=== PATIENT | female | born 1995 | race African-American/Black ===

== ENCOUNTER → 2023-06-17 | Emergency (ER) | payer BC, OTHER ==
[~2023-06-17] MED LIST: CIPROFLOXACIN HCL 500 MG TAB ONE; KETOROLAC 30 MG/ML INJ ONE; MAGNESIUM SULFATE 1 gm IVPB 1 GM/100 ML BAG IV ONE; MORPHINE 4 MG/ML SYR ONE; NA CHLORIDE 0.9% 1,000 ML ONE; ONDANSETRON 4 MG/2 ML VIAL ONE; TAMSULOSIN 0.4 MG SR CAP ONE
[2023-06-17 10:56] LABS: Absolute Lymphocytes (CBC) 2.7 K/uL (0.7-4.9); Lymphocytes % 16.8 % (15.3-44.8); MCV 75.4 fL (80-100); MPV 9.4 fL (7.6-11.3); Platelets 202 thou/uL (152-406); RBC Red Blood Cell Count 5.17 M/uL (3.86-4.86)
[2023-06-17 11:13] LABS: Albumin 2.7 g/dL (3.4-5.0); Bilirubin Total 0.3 mg/dL (0.2-1.0); Potassium 4.3 mEq/L (3.5-5.1); Protein, Total 7.2 g/dL (6.4-8.2)
[2023-06-17 11:33] LABS: Specific Gravity 1.024 (1.005-1.030); Urine Bilirubin NEGATIVE (Negative); Urine Blood Negative (Negative); Urine Clarity Clear (Clear); Urine Color Light-Yellow (Yellow); Urine Glucose NEGATIVE (Negative); Urine Protein NEGATIVE (Negative); Urine Urobilinogen Normal (Normal); Urine pH 6.5 (5.0-7.0)
--- NOTE | 2023-06-17 11:36 | RAD REPORT ---
EXAM DESCRIPTION: CT - Stone Protocol - 06/17/2023 11:10 am CLINICAL HISTORY: Abdominal pain. Left flank pain COMPARISON: None. TECHNIQUE: Computed axial tomography of the abdomen pelvis was obtained without oral or IV contrast. Lack of IV and oral contrast limits evaluation of solid organs, appendix, bowel, and vessels. Patton l reformatted images were obtained and reviewed. All CT scans are performed using dose optimization technique as appropriate and may include automated exposure control or mA/KV adjustment according to patient size. FINDINGS: 1 millimeter calculus right kidney. No hydronephrosis. Mild hydronephrosis left kidney. Mild stranding adjacent to the left kidney and left ureter. Portions left ureter dilated. 3 millimeter calculus either left UVJ or entirely within the bladder lumen. The liver, spleen, pancreas and adrenals appear grossly normal There is no evidence of diverticulitis. The appendix appears normal No adnexal mass. Small umbilical hernia IMPRESSION: 3 millimeter calculus either left UVJ or entirely within the bladder lumen. Mild left hy dronephrosis
[2023-06-17 11:42] LABS: Blood Morphology Comment NOT SEEN (NOT SEEN); Platelet Estimate ADEQ
--- NOTE | 2023-06-17 12:08 | EDPHYS ---
Physician Documentation [facility] Name: Sofía Hung Age: 27 yrs Sex: Female : 1995 Arrival Date: 06/17/2023 Time: 10:14 Bed 14 Private MD: ED Physician Demar Chand HPI: 06/17 10:53 This 27 yrs old Black Female presents to ER via Wheelchair with complaints of Possible rn Kidney Stone. 10:53 The patient complains of pain in the left mid back. The pain radiates to the abdomen. rn Onset: The symptoms/episode began/occurred yesterday. Modifying factors: The symptoms are alleviated by nothing. the symptoms are aggravated by nothing. Severity of pain: At its worst the pain was moderate in the emergency department the pain is unchanged. The patient has not experienced similar symptoms in the past. Patient seen yesterday at [facility] for for kidney stone, has never had kidney stone in past. Does not recall what size stone it was. Sheridan better and discharged home with medication. Pain return this a.m. so came in for evaluation.. Historical: - Allergies: 10:27 No Known Allergies; hb - Home Meds: 10:27 topiramate 50 mg oral tablet 1 tab 2 times per day [Active]; buspirone 15 mg Oral hb tablet 1 tab 3 times per day [Active]; escitalopram oxalate 20 mg oral tablet 1 tab daily [Active]; phentermine 37.5 mg oral capsule 1 cap daily [Active]; - PMHx: 10:27 Depressive disorder; Anxiety; hb - Immunization history:: Adult Immunizations up to date. - Social history:: Smoking status: Patient denies any tobacco usage or history of. - Family history:: not pertinent. - Hospitalizations: : No recent hospitalization is reported. ROS: 10:53 Constitutional: Negative for fever, chills, and weight loss, Cardiovascular: Negative rn for chest pain, palpitations, and edema, Respiratory: Negative for shortness of breath, cough, wheezing, and pleuritic chest pain, Abdomen/GI: Positive for left flank pain Back: Negative for injury MS/Extremity: Negative for injury and deformity, Skin: Negative for injury, rash, and discoloration, Neuro: Negative for headache, weakness, numbness, tingling, and seizure, Exam: 10:53 Constitutional: This is a well developed, well nourished patient who is awake, alert, rn appears uncomfortable Cardiovascular: Regular rate and rhythm. No pulse deficits. Respiratory: No increased work of breathing, no retractions or nasal flaring. Abdomen/GI: Soft, nontender MS/ Extremity: Pulses equal, no cyanosis. Neuro: Awake and alert, GCS 15 Vital Signs: 10:25 BP 117 / 81; Pulse 82; Resp 16; Temp 97.6; Pulse Ox 100% ; Weight 79.38 kg; Height 5 hb ft. 6 in. ; 10:45 BP 124 / 85; Pulse 89; Resp 15; Pulse Ox 100% ; ko1 12:39 BP 116 / 68; Pulse 82; Resp 16; Pulse Ox 100% ; ko1 10:25 Body Mass Index 28.25 (79.38 kg, 167.64 cm) hb MDM: 10:20 Patient medically screened. rn 12:05 Differential diagnosis: nephrolithiasis, pyelonephritis, UTI. Data reviewed: vital rn signs, nurses notes, lab test result(s), radiologic studies, CT scan, and as a result, I will discharge patient. Counseling: I had a detailed discussion with the patient and/or guardian regarding the historical points, exam findings, and any diagnostic results supporting the discharge/admit diagnosis, lab results, radiology results, the need for outpatient follow up, to return to the emergency department if symptoms worsen or persist or if there are any questions or concerns that arise at home. Response to treatment: the patient's symptoms have markedly improved after treatment, and as a result, I will discharge patient. Special discussion: I discussed with the patient/guardian in detail that at this point there is no indication for admission to the hospital. It is understood, however, that if the symptoms persist or worsen the patient needs to return immediately for re-evaluation. ED course: Patient with marked improvement after medication. Minimal pain. Patient is happy and thankful. 3 mm kidney stone appears to be either in the bladder completely or just about to drop into the bladder. Signs of ureteral stranding, will DC home with antibiotics and given return precautions.. 06/17 10:28 Order name: CBC with Diff; Complete Time: 11:57 rn 06/17 10:28 Order name: CMP; Complete Time: 11:15 rn 06/17 10:28 Order name: Urinalysis w/ reflexes; Complete Time: 11:42 rn 06/17 11:05 Order name: Manual Differential; Complete Time: 11:57 EDMS 06/17 10:28 Order name: CT Stone Protocol; Complete Time: 11:42 rn 06/17 10:28 Order name: IV Saline Lock; Complete Time: 10:49 rn 06/17 10:28 Order name: Labs collected and sent; Complete Time: 10:49 rn Administered Medications: 10:55 Drug: Ondansetron IVP 4 mg IVP once; over 2 minutes Route: IVP; Site: left wrist; ko1 12:42 Follow up: Response: No adverse reaction; Nausea is decreased ko1 10:58 Drug: TORadol - Ketorolac IVP 15 mg IVP once Route: IVP; Site: left wrist; ko1 12:42 Follow up: Response: No adverse reaction ko1 11:01 Drug: morphine IVP or IV 4 mg IVP once over 4 mins Route: IVP; Infused Over: 4 mins; ko1 Site: left wrist; 12:42 Follow up: Response: No adverse reaction; Pain is decreased ko1 11:55 Drug: Magnesium Sulfate IVPB 1 grams IVPB once over 1 hrs Route: IVPB; Infused Over: 1 ko1 hrs; Site: left wrist; 12:42 Follow up: IV Status: Completed infusion; IV Intake: 100ml ko1 12:02 Drug: Flomax PO 0.4 mg PO once Route: PO; ko1 12:42 Follow up: Response: No adverse reaction ko1 12:39 Drug: Ciprofloxacin PO 500 mg PO once Route: PO; ko1 12:49 Follow up: Response: No adverse reaction ko1 Disposition Summary: 06/17/23 12:06 Discharge Ordered Notes: Location: Home rn Problem: new rn Symptoms: have improved rn Condition: Stable rn Diagnosis - Urinary calculus, unspecified rn - UTI/ Urinary tract infection, site not specified rn Followup: rn - With: Private Physician - When: As needed - Reason: Recheck today's complaints, Re-evaluation by your physician Discharge Instructions: - Discharge Summary Sheet rn - Kidney Stones rn - Urinary Tract Infection, Adult rn Forms: - Medication Reconciliation Form rn - Thank You Letter rn - Antibiotic bar turner - Prescription Opioid Use rn - Patient Portal Instructions rn - Leadership Thank You Letter rn Prescriptions: - Cipro 500 mg Oral tablet - take 1 tablet ORAL route every 12 hours for 10 days; 20 tablet; Refills: 0, rn Product Selection Permitted Signatures: Dispatcher [employer] Demar Pickard MD MD rn Baxter, Heather RN RN Rosangela Flores RN RN ko1
--- NOTE | 2023-06-17 12:08 | ER ---
Nurse's Notes [facility] Name: Sofía Hung Age: 27 yrs Sex: Female : 1995 Arrival Date: 06/17/2023 Time: 10:14 Bed 14 Private MD: Diagnosis: Urinary calculus, unspecified;UTI/ Urinary tract infection, site not specified Presentation: 06/17 10:25 Chief complaint: Patient states: LEFT FLANK PAIN, SEEN AT [facility] LAST NIGHT AND DX WITH hb KIDNEY STONE. Coronavirus screen: At this time, the client does not indicate any symptoms associated with coronavirus-19. Ebola Screen: No symptoms or risks identified at this time. Initial Sepsis Screen: Does the patient meet any 2 criteria? No. Patient's initial sepsis screen is negative. Does the patient have a suspected source of infection? No. Patient's initial sepsis screen is negative. Risk Assessment: Do you want to hurt yourself or someone else? Patient reports no desire to harm self or others. Onset of symptoms is unknown. 10:25 Method Of Arrival: Wheelchair hb 10:25 Acuity: LEXII 3 hb Historical: - Allergies: 10:27 No Known Allergies; hb - Home Meds: 10:27 topiramate 50 mg oral tablet 1 tab 2 times per day [Active]; buspirone 15 mg Oral hb tablet 1 tab 3 times per day [Active]; escitalopram oxalate 20 mg oral tablet 1 tab daily [Active]; phentermine 37.5 mg oral capsule 1 cap daily [Active]; - PMHx: 10:27 Depressive disorder; Anxiety; hb - Immunization history:: Adult Immunizations up to date. - Social history:: Smoking status: Patient denies any tobacco usage or history of. - Family history:: not pertinent. - Hospitalizations: : No recent hospitalization is reported. Screenin:45 [facility] ED Fall Risk Assessment (Adult) History of falling in the last 3 months, ko1 including since admission No falls in past 3 months (0 pts). Abuse screen: Denies threats or abuse. Denies injuries from another. Nutritional screening: No deficits noted. Tuberculosis screening: No symptoms or risk factors identified. Assessment: 10:45 General: Appears in no apparent distress. uncomfortable, Behavior is calm, cooperative, ko1 appropriate for age. Pain: Complains of pain in abdomen and left mid back. Neuro: No deficits noted. Cardiovascular: No deficits noted. Respiratory: No deficits noted. GI: Bowel sounds present X 4 quads. Abd is soft and non tender X 4 quads. : No deficits noted. EENT: No deficits noted. Derm: No deficits noted. Musculoskeletal: No deficits noted. Vital Signs: 10:25 BP 117 / 81; Pulse 82; Resp 16; Temp 97.6; Pulse Ox 100% ; Weight 79.38 kg; Height 5 hb ft. 6 in. ; 10:45 BP 124 / 85; Pulse 89; Resp 15; Pulse Ox 100% ; ko1 12:39 BP 116 / 68; Pulse 82; Resp 16; Pulse Ox 100% ; ko1 10:25 Body Mass Index 28.25 (79.38 kg, 167.64 cm) hb ED Course: 10:16 Patient arrived in ED. ts1 10:20 Demar Chand MD is Attending Physician. rn 10:27 Triage completed. hb 10:30 Arm band placed on. hb 10:34 Rosangela Lopez, SANDRA is Primary Nurse. ko1 10:45 Patient has correct armband on for positive identification. Bed in low position. Call ko1 light in reach. Side rails up X 1. Provided Education on: na. Pulse ox on. NIBP on. Door closed. Noise minimized. Lights dimmed. Warm blanket given. 10:49 CBC with Diff Sent. ko1 10:49 CMP Sent. ko1 10:54 Inserted saline lock: 22 gauge in left forearm, using aseptic technique. Blood ds4 collected. 11:01 CBC with Diff Sent. ko1 11:01 CMP Sent. ko1 11:12 CT Stone Protocol In Process Unspecified. EDMS 12:39 No provider procedures requiring assistance completed. ko1 12:49 IV discontinued, intact, bleeding controlled, No redness/swelling at site. Pressure ko1 dressing applied. Administered Medications: 10:55 Drug: Ondansetron IVP 4 mg IVP once; over 2 minutes Route: IVP; Site: left wrist; ko1 12:42 Follow up: Response: No adverse reaction; Nausea is decreased ko1 10:58 Drug: TORadol - Ketorolac IVP 15 mg IVP once Route: IVP; Site: left wrist; ko1 12:42 Follow up: Response: No adverse reaction ko1 11:01 Drug: morphine IVP or IV 4 mg IVP once over 4 mins Route: IVP; Infused Over: 4 mins; ko1 Site: left wrist; 12:42 Follow up: Response: No adverse reaction; Pain is decreased ko1 11:55 Drug: Magnesium Sulfate IVPB 1 grams IVPB once over 1 hrs Route: IVPB; Infused Over: 1 ko1 hrs; Site: left wrist; 12:42 Follow up: IV Status: Completed infusion; IV Intake: 100ml ko1 12:02 Drug: Flomax PO 0.4 mg PO once Route: PO; ko1 12:42 Follow up: Response: No adverse reaction ko1 12:39 Drug: Ciprofloxacin PO 500 mg PO once Route: PO; ko1 12:49 Follow up: Response: No adverse reaction ko1 Medication: 10:45 VIS not applicable for this client. ko1 Intake: 12:42 IV: 100ml; Total: 100ml. ko1 Outcome: 12:06 Discharge ordered by . sandra 12:56 Discharged to home ambulatory, with family, ko1 12:56 Condition: improved 12:56 Discharge instructions given to patient, family, Instructed on discharge instructions, follow up and referral plans. medication usage, Demonstrated understanding of instructions, follow-up care, medications, Prescriptions given X 1, 12:57 Patient left the ED. ko1 Signatures: Dispatcher [employer] Demar Pickard MD MD rn Swanson, Donovan ds4 Erica Narayan RN RN hb Oliver, Kathy, RN RN ko1 Lizeth Vinson PAS PAS ts1
[2023-06-17 13:11] VITALS: TEMP 97.6; O2SAT 100
[2023-06-17 13:19] VITALS: BP 116/68
== END ==
LOC: ER 10:14
DX: N20.9 Urinary calculus, unspecified (principal); N39.0 Urinary tract infection, site not specified; F41.9 Anxiety disorder, unspecified
CPT/HCPCS: 96365; 85025; 36415; 81003; 80053; 76377; 74176; 96375; 99284; J3475; J2405; J7030